=== PATIENT | female | born 1980 | race Caucasian/White ===

== ENCOUNTER → 2021-03-25 | Outpatient (CLI) | payer OTHER | LOC: CAT 13:26 | PROVIDERS: ATTEND Internal Medicine Cardiovascular Disease | DX: Z13.6 Encounter for screening for cardiovascular disorders (principal); I25.10 Atherosclerotic heart disease of native coronary artery without angina pectoris; E78.00 Pure hypercholesterolemia, unspecified ==

== ENCOUNTER → 2021-04-01 | Outpatient (CLI) | payer OTHER | LOC: SJCVCIMAG 08:51 | PROVIDERS: ATTEND Internal Medicine Cardiovascular Disease | DX: I07.1 Rheumatic tricuspid insufficiency (principal); R07.89 Other chest pain; E78.5 Hyperlipidemia, unspecified; Z82.49 Family history of ischemic heart disease and other diseases of the circulatory system ==